=== PATIENT | female | born 1965 | race African-American/Black ===

== ENCOUNTER 2020-05-13 07:28 | Emergency (ER) | payer BC ==
[2020-05-13] MEDS ORDERED: predniSONE 20 MG TAB ONE (08:24)
--- NOTE | 2020-05-13 08:29 | RAD ---
EXAM: Chest 2 views: HISTORY: Chest pain COMPARISON: 03/17/2019 FINDINGS: There is a normal-sized cardiomediastinal silhouette. There is no evidence of consolidation, mass, or pleural effusion. Scoliotic curvature and degenerative changes are seen in the spine. IMPRESSION: No evidence of acute cardiopulmonary disease
== END 2020-05-13 08:40 | disposition home or self-care (01) ==
LOC: MADERS 07:28
DX: J45.901 Unspecified asthma with (acute) exacerbation (principal); J44.9 Chronic obstructive pulmonary disease, unspecified; I10 Essential (primary) hypertension; E03.9 Hypothyroidism, unspecified; E28.2 Polycystic ovarian syndrome; F41.9 Anxiety disorder, unspecified; F32.9 Major depressive disorder, single episode, unspecified; Z87.01 Personal history of pneumonia (recurrent); Z87.891 Personal history of nicotine dependence; Z79.899 Other long term (current) drug therapy; Z79.891 Long term (current) use of opiate analgesic
CPT/HCPCS: 71046; J7512; J7620

== ENCOUNTER 2020-05-15 15:34 | Emergency (ER) | payer BC, OTHER ==
--- NOTE | 2020-05-15 16:35 | CT ---
EXAM: CT of the chest without contrast HISTORY: Cough and fever with negative chest x-ray COMPARISON: None TECHNIQUE: Multiple contiguous axial images were obtained in a CT the chest without contrast. Coronal and sagittal reformats were performed. FINDINGS: HEART: Normal in size without focal cardiac abnormality MEDIASTINUM: No hilar or mediastinal lymphadenopathy. Evaluation of the mediastinum is limited withou t IV contrast. LUNGS: There are subtle peripheral areas of groundglass opacities scattered throughout the lungs. No suspicious pulmonary nodules are seen. PLEURAL SPACE: No pneumothorax or pleural effusion. CHEST WALL SOFT TISSUES: Unremarkable OSSEOUS STRUCTURES: Mild degenerative changes in the spine. VISUALIZED SUBDIAPHRAGMATIC STRUCTURES: Status post cholecystectomy IMPRESSION: Peripheral areas of groundglass attenuation in the lungs may be secondary to an atypical infectious p rocess.
[2020-05-15] MEDS ORDERED: Dexamethasone 4 MG TAB ONE (16:50)
[2020-05-15] MEDS ORDERED: Azithromycin 250 MG TAB ONE (16:50)
[2020-05-15] MEDS ORDERED: Benzonatate 100 MG CAP ONE (16:50)
[2020-05-16 13:07] LABS: SARS-CoV-2 MS2 Positive; SARS-CoV-2 N Gene Positive; SARS-CoV-2 S Gene Positive; SARS-CoV-2 orf1ab Positive
== END 2020-05-15 17:03 | disposition home or self-care (01) ==
LOC: MADERS 15:34
DX: U07.1 COVID-19 (principal); J12.89 Other viral pneumonia; F41.9 Anxiety disorder, unspecified; E03.9 Hypothyroidism, unspecified; I10 Essential (primary) hypertension; Z87.891 Personal history of nicotine dependence; Z79.899 Other long term (current) drug therapy
CPT/HCPCS: 71250; 87635; J8540; U0003